=== PATIENT | male | born 1990 | race American Indian/Alaskan Native ===

== ENCOUNTER 2018-04-23 14:04 | Emergency (ER) | payer OTHER ==
[2018-04-23 14:11] VITALS: BP 122/69
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
--- NOTE | 2018-04-23 16:48 | XRay Report ---
FINAL REPORT EXAM: XR SPINE CERVICAL 2-3V HISTORY: positive cervical spine tenderness TECHNIQUE: Frontal, lateral, swimmer's and odontoid views cervical spine Comparison: None FINDINGS: Bony alignment is normal. The vertebral heights are maintained. There is slight loss of height of the C5-C6 disc. There is no evidence of fracture or subluxation. The paraspinous soft tissues are unremarkable. IMPRESSION: 1. No evidence of fracture or subluxation. However, cervical spine fractures can be missed with plain film imaging. If there is a clinical concern for fracture, CT imaging may be helpful. 2. Evidence of degenerative disc change C5-C6 level.
== END 2018-04-23 17:36 | disposition home or self-care (01) ==
LOC: ED 14:04
DX: S46.912A Strain of unspecified muscle, fascia and tendon at shoulder and upper arm level, left arm, initial encounter (principal); M54.6 Pain in thoracic spine; R51 Headache; V89.2XXA Person injured in unspecified motor-vehicle accident, traffic, initial encounter; Y93.89 Activity, other specified; Y92.488 Other paved roadways as the place of occurrence of the external cause; Y99.8 Other external cause status
CPT/HCPCS: 72040; 99283

== ENCOUNTER 2022-03-01 01:25 | Emergency (ER) | payer SELFPAY ==
[2022-03-01 01:33] VITALS: BP 115/77
--- NOTE | 2022-03-02 14:40 | Electrocardiograph Report ---
[facility] Test Date: 2022-03-01 Test Time: 01:28:45 Pat Name: SHARONDA WATT Department: Room: Gender: M [employer] Supervisor: DOTTIE : 1990 Requested By: ED DOC Order Number: [id number] Reading MD: Harper Bowden Measurements Intervals [place] Rate: 97 P: 78 ID: [id number] QRS: 87 QRSD: 102 T: 38 QT: 355 QTc: 451 Interpretive Statements Sinus rhythm No previous ECG available for comparison Electronically Signed On 03-02-2022 14:40:04 EDT by Harper Bowden
== END 2022-03-02 09:55 | disposition left against medical advice (07) ==
LOC: ED 01:25
DX: R07.89 Other chest pain (principal); R06.02 Shortness of breath; Z53.21 Procedure and treatment not carried out due to patient leaving prior to being seen by health care provider
CPT/HCPCS: 93005